=== PATIENT | male | born 1995 ===

== ENCOUNTER 2021-11-20 03:12 | Emergency (ER) | payer SELFPAY ==
[2021-11-20 03:18] VITALS: BP 132/72
[2021-11-20] MEDS ORDERED: TETRACAINE 0.5% OPHTH SOLN 4ML OU ONE (07:44)
[2021-11-20] MEDS ORDERED: FLUORESCEIN 1 MG STRIP OP ONE (07:44)
--- NOTE | 2021-11-20 08:38 | Emergency Department Report ---
ED Eye Problem HPI - General Chief complaint: Eye Problems Stated complaint: RT EYE IRRITATION Time Seen by Provider: 11/20/21 07:25 Source: patient Mode of arrival: Ambulatory Limitations: No Limitations - History of Present Illness Initial comments: This is a 26-year-old male nontoxic, well nourished in appearance, no acute signs of distress presents to the ED with c/o of left eye redness, pain and blurry vision x 1 day. Patient denies any trauma to the eye. Stated that when he was opening a cabinet felt like something got into his eye and has been rubbing it. Denies any floaters. Patient denies any visual changes or decreased vision. Patient denies any fever, chills, nausea, vomiting, chest pain, breath, headache, stiff neck numbness or tingling. Patient denies any allergies. MD chief complaint: eye pain, eye redness -: days(s) (1) Onset Description: sudden Location: left eye Place: home If Injury: none Eye Symptoms: redness, pain, foreign body sensation, blurry vision Severity: mild Severity scale (0 -10): 3 If Pain, Quality: aching Consistency: constant Associated Symptoms: none. denies: headache, neck pain, nausea/vomiting, cough, rhinorrhea, fever, shortness of breath Treatments Prior to Arrival: none - Related Data Previous Rx's Medication Instructions Recorded Last Taken Type Polymyxin B Sulf/Trimethoprim 2 drops OS TID 7 Days #1 bottle 11/20/21 Unknown Rx [Polytrim Eye Drops] Allergies Allergy/AdvReac Type Severity Reaction Status Date / Time No Known Allergies Allergy Verified 11/20/21 03:18 ED Review of Systems ROS: Stated complaint: RT EYE IRRITATION Other details as noted in HPI Comment: All other systems reviewed and negative Constitutional: denies: chills, fever Eyes: eye pain. denies: eye discharge, vision change ENT: denies: ear pain, throat pain Respiratory: denies: cough, shortness of breath, wheezing Cardiovascular: denies: chest pain, palpitations Endocrine: no symptoms reported Gastrointestinal: denies: abdominal pain, nausea, diarrhea Genitourinary: denies: urgency, dysuria Musculoskeletal: denies: back pain, joint swelling, arthralgia Skin: denies: rash, lesions Neurological: denies: headache, weakness, paresthesias Psychiatric: denies: anxiety, depression Hematological/Lymphatic: denies: easy bleeding, easy bruising ED Past Medical Hx - Medications Home Medications: Home Medications Medication Instructions Recorded Confirmed Last Taken Type Polymyxin B Sulf/Trimethoprim 2 drops OS TID 7 Days #1 bottle 11/20/21 Unknown Rx [Polytrim Eye Drops] ED Physical Exam - General Limitations: No Limitations General appearance: alert, in no apparent distress - Head Head exam: Present: atraumatic, normocephalic - Eye Eye exam: Present: normal appearance, PERRL, EOMI. Absent: scleral icterus, conjunctival injection, nystagmus, periorbital swelling, periorbital tenderness Pupils: Present: normal accommodation - Expanded Eye Exam Expanded Eyelids: Normal Inspection: Left Pupils: Regular, Round: Left Sclera/Conjunctival: Normal Inspection: Left Visual acuity (R) = 20/: 20 Visual acuity (L) = 20/: 20 With correction: No - Neck Neck exam: Present: normal inspection, full ROM. Absent: lymphadenopathy - Respiratory Respiratory exam: Absent: respiratory distress - Cardiovascular Cardiovascular Exam: Present: regular rate - Extremities Exam Extremities exam: Present: full ROM - Back Exam Back exam: Present: full ROM - Neurological Exam Neurological exam: Present: alert, oriented X3, normal gait - Psychiatric Psychiatric exam: Present: normal affect, normal mood - Skin Skin exam: Present: warm, dry, intact, normal color. Absent: rash - Other Other exam information: Under [place]osta lamp, I used fluorescein and tetracaine to examine cornea for corneal abrasion or foreign body, negative left eye foreign body noted upon exam. Exam does show some small corneal abrasion to the left lateral cornea. ED Course Vital Signs 11/20/21 03:16 Temperature 98.4 F Pulse Rate 79 Respiratory 20 Rate Blood Pressure 132/72 O2 Sat by Pulse 99 Oximetry - Reevaluation(s) Reevaluation #1: 11/20/21 08:36 Patient is speaking in full sentences with no signs of distress noted. ED Medical Decision Making - Medical Decision Making 26-year-old male that presents with left corneal abrasion. Patient is stable and was examined by me. Otherwise physical exam is unremarkable. I will discharge patient with Polytrim. Patient was instructed to follow-up with a center rep doctor in 2 days or if symptoms worsen and continue return to emergency room as soon as possible. At time of discharge, the patient does not seem toxic or ill in appearance. No acute signs of distress noted. Patient agrees to discharge treatment plan of care. No further questions noted by the patient. Critical care attestation.: If time is entered above; I have spent that time in minutes in the direct care of this critically ill patient, excluding procedure time. ED Disposition Clinical Impression: Left corneal abrasion Disposition: 01 HOME / SELF CARE / HOMELESS Is pt being admited?: No Does the pt Need Aspirin: No Condition: Stable Instructions: Corneal Abrasion Additional Instructions: Follow-up with a center rep doctor in 2 days or if symptoms worsen and continue return to emergency room as soon as possible. Prescriptions: Polymyxin B Sulf/Trimethoprim [Polytrim Eye Drops] 2 drops OS TID 7 Days #1 bottle Referrals: PRIMARY CARE, [Referring] - 3-5 Days ADA BROWN MD [Staff Physician] - 11/22/21 Time of Disposition: 08:38
== END 2021-11-22 12:30 | disposition home or self-care (01) ==
LOC: ED 03:12
DX: S05.02XA Injury of conjunctiva and corneal abrasion without foreign body, left eye, initial encounter (principal); Z79.899 Other long term (current) drug therapy; X58.XXXA Exposure to other specified factors, initial encounter; Y93.89 Activity, other specified; Y92.89 Other specified places as the place of occurrence of the external cause; Y99.8 Other external cause status
CPT/HCPCS: 99282; 99283